=== PATIENT | female | born 1945 | race Caucasian/White ===

== ENCOUNTER → 2016-10-01 | Outpatient (CLI) | payer OTHER, MEDICARE ==
[~2016-10-01] MED LIST: ALDACTONE DPS25 MG PO; AMBIEN DPS5 MG PO; CARVEDILOL25 MG PO; CATAPRES-DPS0.1 MG PO; COMPAZINE DPS5 MG PO; DAILY MULTIPLE1 EAC1 PO; GLUCOSE GEL38 GM PO; GLUTOSE 1537.5 GM PO; IMODIUM A-D2 MG PO; LANTUS100 UNITS/ SQ; MAALOX DPS30 ML PO; MAG-AL LIQUID30 ML PO; MYCAMINE100 MG IV; NORVASC DPS10 MG PO; NOVOLIN R100 UNIT/1 SQ; PEPCID DPS20 MG PO; PERCOCET 5 DPS1 TAB PO; SURFAK DPS240 MG PO; TRIMETHOPRIM100 MG PO; TYLENOL DPS325 MG PO; ZESTRIL DPS20 MG PO
== END | disposition home or self-care (01) ==
LOC: RAD.S 14:28
DX: C50.919 Malignant neoplasm of unspecified site of unspecified female breast (principal); N63 Unspecified lump in breast

== ENCOUNTER 2016-10-29 14:09 | Emergency (ER) | payer MEDICARE, OTHER ==
--- NOTE | 2016-11-02 17:07 | ER ---
ADMIT: 10/29/2016 RM/LOC: ER [facility] MR#: [id number] [facility] [address], [place] [id number] JEREMÍAS HENRIQUEZ [address] [place], [place] [id number] Emergency Room Report SEX: F AGE: 71 : 1945 DATE: 10/29/2016 ADDENDUM: A 71-year-old white female coming in with suprapubic pain and abdominal pain. Urine will be cultured, but she is on Cipro, and she has been treated by Urology for some recurrent UTI. She also has a history of kidney stones as well. She is not septic at this time. CBC and chemistry look okay, and again, the urine will be cultured, but she is already covered by antibiotic Cipro and has been on several. At this time, she is comfortable. The kidney stone was 3.8 mm just outside the bladder, so if she has not already passed it, she will. She has an appointment with Dr. Johnsno on , which she should keep. I gave her 20 [place] 5/325, 1 to 2 p.o. q.6 p.r.n. pain if she would need them, and I am not adjusting any of her other medications. CONDITION ON DISCHARGE: Improved. Miguel Angel Norris MD/ aidee JOB #: [id number] CC: Miguel Angel Norris MD, Attending Physician Danielle Mcclain MD, Family Physician
== END 2016-10-29 17:10 | disposition home or self-care (01) ==
LOC: ER 14:09
DX: N13.2 Hydronephrosis with renal and ureteral calculous obstruction (principal); I10 Essential (primary) hypertension; E11.9 Type 2 diabetes mellitus without complications; Z88.5 Allergy status to narcotic agent; Z79.899 Other long term (current) drug therapy

== ENCOUNTER → 2016-10-31 | Outpatient (CLI) | payer MEDICARE, OTHER | END | disposition home or self-care (01) | LOC: RAD.S 10-17 09:30 | DX: C50.512 Malignant neoplasm of lower-outer quadrant of left female breast (principal) ==

== ENCOUNTER → 2016-11-29 | Outpatient (CLI) | payer MEDICARE, OTHER | END | disposition home or self-care (01) | LOC: PTH.S 09:00 → RAD.S 09:30 | PROC: 0HBU3ZX Excision of Left Breast, Percutaneous Approach, Diagnostic (ICD-10-PCS; principal; 2016-11-29) | DX: C50.512 Malignant neoplasm of lower-outer quadrant of left female breast (principal) ==